=== PATIENT | male | born 1950 | race Two or more races ===

== ENCOUNTER → 2017-04-14 | Outpatient (CLI) | payer BC ==
[~2017-04-14] MED LIST: ALAWAY10 ML OU; ALLEGRA ALLERG180 MG PO; ATARAX-DPS10 MG PO; CELEBREX200 MG PO; CLARITIN DPS10 MG PO; COLACE100 MG PO; FLONASE 0.05% D16 GM NS; GAS X PO; KENALOG TP; MEN'S MULTI-VI1 EACH PO; METAMUCIL PO; MIRALAX PACKET17 GM PO; NASONEX NASAL S17 GM NS; NEXIUM40 MG PO; NORVASC5 MG PO; OXY IR DPS5 MG PO; PERCOCET 5-3251 EACH PO; PRILOSEC DPS20 MG PO; ROBAXIN-DPS750 MG PO; SENOKOT S1 TAB PO; SYNTHROID DPS0.15 MG PO; SYNTHROID150 MCG PO; TOPROL XL DPS50 MG PO; TOPROL XL50 MG PO; TYLENOL DPS325 MG PO; ULTRAM DPS50 MG PO; VALIUM2 MG PO; XARELTO10 MG PO; ZOFRAN4 M1 PO; ZOFRAN4 MG PO; [UNRECOGNIZED DRUG - OTHER] TP
== END | disposition home or self-care (01) ==
LOC: PTH.S 09:06 → EDSTATUS 04-24 10:18 → PTH.S 04-24 10:27
DX: Z01.818 Encounter for other preprocedural examination (principal); I10 Essential (primary) hypertension; R00.1 Bradycardia, unspecified; R94.31 Abnormal electrocardiogram [ECG] [EKG]